=== PATIENT | male | born 1955 | race African-American/Black ===

== ENCOUNTER 2021-09-29 22:05 | Inpatient (IN) | payer BC, OTHER ==
[~2021-09-29] VITALS: Ht 170.2 cm; Wt 96.2 kg
[2021-09-29] MEDS ORDERED: ASPIRIN 81MG TABLET PO ONE (22:45)
[2021-09-29] MEDS ORDERED: SODIUM CHLORIDE 0.9% 1,000 ML IV ONE (22:45)
[2021-09-29 23:02] LABS: HEMOGLOBIN. 9.1 g/dL (14.0-18.0); MEAN CORPUSCULAR HEMOGLOBIN 25.6 pg (28.0-32.0); MEAN CORPUSCULAR VOLUME 81.8 fL (80.0-94.0); MEAN PLATELET VOLUME 7.7 fl (7.4-10.4); PLATELET 369 x1000/uL (130-400); RED BLOOD CELL COUNT 3.54 mill/uL (4.7-6.1)
[2021-09-29 23:10] LABS: CHLORIDE 102 mEq/L (98-107)
[2021-09-29 23:27] LABS: PLATELET ESTIMATE NORMAL
[2021-09-29] MEDS ORDERED: SODIUM CHLORIDE 0.9% 1000ML BAG (SEPSIS BOLUS) IV ONE (23:45)
[2021-09-29] MEDS ORDERED: HEPARIN 5000 UNITS/ML VIAL IV SCH (23:45)
[2021-09-29] MEDS ORDERED: HEPARIN 25,000 UNITS PREMIX 250 ML IV PRN (23:45)
[2021-09-30] VITALS (11 sets, daily range): BP systolic 116–200; BP diastolic 61–105
[2021-09-30] MEDS ORDERED: PIPERACILLIN/TAZOBACTAM 3.375GM/50ML PREMIX IV SCH
[2021-09-30] MEDS ORDERED: VANCOMYCIN 1GM PMX (XELLIA) 200 ML IV SCH
[2021-09-30] MEDS ORDERED: HEPARIN BOLUS PRN aPTT <36 IV ×2 (00:15→10:15)
[2021-09-30] MEDS ORDERED: HEPARIN 80 UNITS/KG BOLUS IV SCH (00:15)
[2021-09-30] MEDS ORDERED: HEPARIN BOLUS PRN aPTT 37-44 IV ×2 (00:15→10:15)
[2021-09-30] MEDS ORDERED: HEPARIN 25,000 UNITS in DEXT 5% WATER 245 ML IV PRN (00:30)
[2021-09-30] MEDS ORDERED: HEPARIN 25,000 UNITS PREMIX 250 ML IV SCH (00:30)
[2021-09-30] MEDS ORDERED: HEPARIN 25,000 UNITS in DEXT 5% WATER 250 ML IV PRN (00:30)
[2021-09-30] MEDS ORDERED: ACETAMINOPHEN 325MG TABLET PO PRN (02:00)
[2021-09-30] MEDS ORDERED: CLONIDINE 0.1MG TABLET PO PRN (02:00)
[2021-09-30] MEDS ORDERED: ONDANSETRON HCL 4MG/2ML INJ IV PRN (02:00)
[2021-09-30] MEDS ORDERED: GUAIFENESIN 200MG/10ML SUGAR FREE UDC PO PRN (02:00)
[2021-09-30] MEDS ORDERED: DOCUSATE SODIUM 100MG CAPSULE PO PRN (02:00)
[2021-09-30] MEDS ORDERED: IPRATROPIUM/ALBUTEROL 0.5-3(2.5)MG/3ML NEB HHN PRN (02:00)
[2021-09-30 02:26] LABS: CLARITY URINE TURBID (CLEAR); COLOR URINE YELLOW (YELLOW); KETONES URINE NEGATIVE (NEGATIVE); LEUKOCYTE ESTERASE URINE 3+ (NEGATIVE); NITRITE URINE NEGATIVE (NEGATIVE); OCCULT BLOOD URINE 1+ (NEGATIVE); PH URINE 7.5 (4.5-8.0); PROTEIN URINE 3+ (NEGATIVE); SPECIFIC GRAVITY URINE 1.013 (1.005-1.030); UROBILINOGEN URINE 0.2 E.U./dL (0.2-1.0)
[2021-09-30] MEDS: PIPERACILLIN/TAZOBACTAM 3.375GM/50ML PREMIX IV SCH ×2 (07:42→15:45)
[2021-09-30 07:59] LABS: BASOPHILS % 0.6 % (0.0-2.0); EOSINOPHILS % 0.9 % (0.0-5.0); HEMATOCRIT. 28.2 % (42.0-52.0); HEMOGLOBIN. 8.5 g/dL (14.0-18.0); LYMPHOCYTES % 11.6 % (20.0-50.0); MEAN CORPUSCULAR VOLUME 86.4 fL (80.0-94.0); MEAN PLATELET VOLUME 7.9 fl (7.4-10.4); MONOCYTES % 8.5 % (2.0-8.0); NEUTROPHILS % 78.4 % (40.0-76.0); PLATELET 352 x1000/uL (130-400); RED BLOOD CELL COUNT 3.26 mill/uL (4.7-6.1); RED CELL DISTRIBUTION WIDTH 18.6 % (11.6-14.6)
[2021-09-30] MEDS ORDERED: HYDROCODONE/ACETAMINOPHEN 5/325MG TABLET PO PRN (10:15)
[2021-09-30] MEDS ORDERED: FUROSEMIDE 40MG/4ML VIAL IVP NR (13:15)
[2021-09-30] MEDS: AMLODIPINE 5MG TABLET PO SCH ×2 (13:48→18:46)
[2021-09-30 14:20] LABS: BG BASE EXCESS -4.2 mmol/L (-2.0-2.0); BG CARBOXYHEMOGLOBIN 0.6 % (0.5-1.5); BG DEOXYHEMOGLOBIN 1.5 % (0.0-5.0); BG FRACTION INSPIRED OXYGEN 40; BG HCO3 ACT 17.9 mmol/L (22.0-26.0); BG METHEMOGLOBIN 0.4 % (0.0-1.5); BG OXYGEN SATURATION 98.5 % (92.0-98.5); BG OXYHEMOGLOBIN 97.5 % (94.0-97.0); BG PCO2 23.8 mmHg (35.0-45.0); BG PH 7.495 (7.350-7.450); BG PO2 139.9 mmHg (75.0-100.0); BG SAMPLE SITE RIGHT RADIAL; BG TOTAL HEMOGLOBIN 9.4 g/dL (12.0-18.0); BG VENT MODE NASAL CANNULA
[2021-09-30] MEDS ORDERED: HYDRALAZINE 20MG/ML VIAL IV PRN (16:30)
[2021-09-30] MEDS ORDERED: *PATIENT'S OWN MEDICATION STORAGE XX SCH (17:00)
[2021-09-30] MEDS ORDERED: IOHEXOL-350 100 ML BOTTLE ONE (20:06)
[2021-09-30] MEDS ORDERED: HYDRALAZINE HCL 10MG TABLET PO SCH (22:00)
[2021-09-30] MEDS ORDERED: HYDRALAZINE HCL 25MG TABLET PO SCH (22:00)
[2021-09-30] MEDS: HYDRALAZINE HCL 10MG TABLET PO SCH (22:03)
[2021-09-30] MEDS: PIPERACILLIN/TAZOBACTAM 3.375G in DEXT 5% WATER 50ML IV SCH (22:04)
[2021-10-01] VITALS (12 sets, daily range): BP systolic 78–128; BP diastolic 40–72
[2021-10-01] MEDS ORDERED: VANCOMYCIN 1GM PMX (XELLIA) 200 ML IV SCH (01:00)
[2021-10-01] MEDS: HYDRALAZINE HCL 10MG TABLET PO SCH (06:00)
[2021-10-01] MEDS: PIPERACILLIN/TAZOBACTAM 3.375G in DEXT 5% WATER 50ML IV SCH ×2 (06:36→13:51)
[2021-10-01 07:59] LABS: HEMATOCRIT. 23.4 % (42.0-52.0); HEMOGLOBIN. 7.3 g/dL (14.0-18.0); MEAN CORPUSCULAR VOLUME 83.8 fL (80.0-94.0); MEAN PLATELET VOLUME 8.5 fl (7.4-10.4); PLATELET 405 x1000/uL (130-400); RED CELL DISTRIBUTION WIDTH 18.5 % (11.6-14.6)
[2021-10-01] MEDS: AMLODIPINE 5MG TABLET PO SCH (09:00)
[2021-10-01] MEDS ORDERED: HYDROCODONE/ACETAMINOPHEN 5/325MG TABLET PO PRN (11:15)
[2021-10-01 11:49] LABS: PLATELET ESTIMATE SLIGHTLY INCREASED
[2021-10-01] MEDS ORDERED: LACTULOSE 20G/30ML UDC PO PRN (16:30)
[2021-10-01] MEDS ORDERED: DOCUSATE SODIUM SUGAR FREE 100MG/10ML UDC NG SCH (16:30)
[2021-10-01] MEDS ORDERED: PANTOPRAZOLE SODIUM 40 MG/VIAL IV SCH (17:00)
[2021-10-01] MEDS: SODIUM CHLORIDE 0.45% 1,000 ML IV SCH (18:13)
[2021-10-01] MEDS: CEFEPIME 1,000 MG in DEXTROSE 5% WATER 50 ML IV SCH (18:13)
[2021-10-02] VITALS (13 sets, daily range): BP systolic 94–154; BP diastolic 42–93
[2021-10-02 07:12] LABS: HEMATOCRIT. 22.6 % (42.0-52.0); HEMOGLOBIN. 7.1 g/dL (14.0-18.0); MEAN CORPUSCULAR HEMOGLOBIN 26.1 pg (28.0-32.0); MEAN CORPUSCULAR VOLUME 83.4 fL (80.0-94.0); MEAN PLATELET VOLUME 8.5 fl (7.4-10.4); PLATELET 474 x1000/uL (130-400); RED BLOOD CELL COUNT 2.71 mill/uL (4.7-6.1); RED CELL DISTRIBUTION WIDTH 18.4 % (11.6-14.6)
[2021-10-02] MEDS ORDERED: LACTULOSE 20G/30ML UDC PO PRN (08:45)
[2021-10-02] MEDS ORDERED: IPRATROPIUM/ALBUTEROL 0.5-3(2.5)MG/3ML NEB HHN PRN (08:45)
[2021-10-02] MEDS ORDERED: CLONIDINE 0.1MG TABLET PO PRN (08:45)
[2021-10-02] MEDS ORDERED: ACETAMINOPHEN 325MG TABLET PO PRN (08:45)
[2021-10-02] MEDS ORDERED: DOCUSATE SODIUM 100MG CAPSULE PO PRN (08:45)
[2021-10-02] MEDS ORDERED: GUAIFENESIN 200MG/10ML SUGAR FREE UDC PO PRN (08:45)
[2021-10-02] MEDS ORDERED: ONDANSETRON HCL 4MG/2ML INJ IV PRN (08:45)
[2021-10-02] MEDS ORDERED: HYDRALAZINE 20MG/ML VIAL IV PRN (08:45)
[2021-10-02] MEDS ORDERED: DOCUSATE SODIUM SUGAR FREE 100MG/10ML UDC NG SCH (09:00)
[2021-10-02] MEDS ORDERED: AMLODIPINE 2.5MG TABLET PO SCH (09:00)
[2021-10-02] MEDS: AMLODIPINE 2.5MG TABLET PO SCH (09:00)
[2021-10-02] MEDS: SODIUM CHLORIDE 0.45% 1,000 ML IV SCH ×3 (10:55→15:32)
[2021-10-02] MEDS: PANTOPRAZOLE SODIUM 40 MG/VIAL IV SCH ×2 (11:41→21:53)
[2021-10-02] MEDS ORDERED: VANCOMYCIN 1GM PMX (XELLIA) 200 ML IV SCH (16:00)
[2021-10-02] MEDS: CEFEPIME 1,000 MG in DEXTROSE 5% WATER 50 ML IV SCH (17:06)
[2021-10-02 17:44] LABS: PLATELET ESTIMATE INCREASED
[2021-10-03] VITALS (14 sets, daily range): BP systolic 98–121; BP diastolic 46–62
[2021-10-03] MEDS: SODIUM CHLORIDE 0.45% 1,000 ML IV SCH ×3 (01:31→17:29)
[2021-10-03 07:11] LABS: HEMATOCRIT. 23.9 % (42.0-52.0); HEMOGLOBIN. 7.4 g/dL (14.0-18.0); MEAN CORPUSCULAR HEMOGLOBIN 26.1 pg (28.0-32.0); MEAN CORPUSCULAR VOLUME 84.2 fL (80.0-94.0); MEAN PLATELET VOLUME 7.9 fl (7.4-10.4); PLATELET 491 x1000/uL (130-400); RED BLOOD CELL COUNT 2.84 mill/uL (4.7-6.1); RED CELL DISTRIBUTION WIDTH 18.7 % (11.6-14.6)
[2021-10-03] MEDS: AMLODIPINE 2.5MG TABLET PO SCH (09:00)
[2021-10-03] MEDS: PANTOPRAZOLE SODIUM 40 MG/VIAL IV SCH ×2 (09:35→21:24)
[2021-10-03] MEDS ORDERED: IOHEXOL-300 100 ML BOTTLE ONE (10:19)
[2021-10-03 11:06] LABS: PLATELET ESTIMATE INCREASED
[2021-10-03] MEDS: CITRIC ACID/SODIUM CITRATE SOLN 30ML UDC PO SCH ×2 (12:41→17:27)
[2021-10-03] MEDS ORDERED: POTASSIUM CHLORIDE 20MEQ/PACKET PO NR (13:00)
[2021-10-03] MEDS: CEFEPIME 1,000 MG in DEXTROSE 5% WATER 50 ML IV SCH (17:27)
[2021-10-04] VITALS (12 sets, daily range): BP systolic 89–148; BP diastolic 42–73
[2021-10-04 06:38] LABS: HEMATOCRIT. 28.2 % (42.0-52.0); HEMOGLOBIN. 8.6 g/dL (14.0-18.0); MEAN CORPUSCULAR HEMOGLOBIN 25.6 pg (28.0-32.0); MEAN CORPUSCULAR VOLUME 83.8 fL (80.0-94.0); MEAN PLATELET VOLUME 8.1 fl (7.4-10.4); PLATELET 517 x1000/uL (130-400); RED BLOOD CELL COUNT 3.37 mill/uL (4.7-6.1); RED CELL DISTRIBUTION WIDTH 18.9 % (11.6-14.6)
[2021-10-04 06:48] LABS: PHOSPHORUS 5.6 mg/dL (2.5-4.9)
[2021-10-04] MEDS: SODIUM CHLORIDE 0.45% 1,000 ML IV SCH ×2 (07:43→23:31)
[2021-10-04 08:36] LABS: PLATELET ESTIMATE INCREASED
[2021-10-04] MEDS: AMLODIPINE 2.5MG TABLET PO SCH (09:11)
[2021-10-04] MEDS: PANTOPRAZOLE SODIUM 40 MG/VIAL IV SCH ×2 (09:11→21:45)
[2021-10-04] MEDS: CITRIC ACID/SODIUM CITRATE SOLN 30ML UDC PO SCH ×3 (09:11→17:13)
[2021-10-04] MEDS ORDERED: POTASSIUM CHLORIDE 20MEQ TABLET SR PO SCH (11:15)
[2021-10-04] MEDS ORDERED: VANCOMYCIN 500MG PREMIX 100 ML IV SCH (12:00)
[2021-10-04] MEDS: CEFEPIME 1,000 MG in DEXTROSE 5% WATER 50 ML IV SCH (17:13)
[2021-10-05] VITALS (16 sets, daily range): BP systolic 83–144; BP diastolic 41–78
[2021-10-05] MEDS: SODIUM CHLORIDE 0.45% 1,000 ML IV SCH ×2 (05:32→17:24)
[2021-10-05 06:08] LABS: HEMATOCRIT. 23.1 % (42.0-52.0); MEAN CORPUSCULAR HEMOGLOBIN 25.6 pg (28.0-32.0); MEAN CORPUSCULAR VOLUME 84.1 fL (80.0-94.0); PLATELET 368 x1000/uL (130-400); RED BLOOD CELL COUNT 2.75 mill/uL (4.7-6.1); RED CELL DISTRIBUTION WIDTH 18.4 % (11.6-14.6)
[2021-10-05] MEDS: AMLODIPINE 2.5MG TABLET PO SCH (09:00)
[2021-10-05] MEDS: PANTOPRAZOLE SODIUM 40 MG/VIAL IV SCH ×2 (09:34→21:18)
[2021-10-05] MEDS: CITRIC ACID/SODIUM CITRATE SOLN 30ML UDC PO SCH ×3 (09:36→17:42)
[2021-10-05] MEDS ORDERED: POTASSIUM CHLORIDE 20MEQ TABLET SR PO NR (12:30)
[2021-10-05] MEDS ORDERED: HYDROCODONE/ACETAMINOPHEN 5/325MG TABLET PO PRN (15:15)
[2021-10-05 15:23] LABS: NUCLEATED RED BLOOD CELLS 2 /100 WBC; PLATELET ESTIMATE NORMAL
[2021-10-05] MEDS: HYDROCODONE/ACETAMINOPHEN 5/325MG TABLET PO PRN ×2 (17:20→21:23)
[2021-10-05] MEDS: CEFEPIME 1,000 MG in DEXTROSE 5% WATER 50 ML IV SCH (17:21)
[2021-10-05 21:21] LABS: HEMATOCRIT 29.6 % (42.0-52.0); HEMOGLOBIN 9.4 g/dL (14.0-18.0)
[2021-10-06] VITALS (13 sets, daily range): BP systolic 83–119; BP diastolic 39–62
[2021-10-06] MEDS: HYDROCODONE/ACETAMINOPHEN 5/325MG TABLET PO PRN ×2 (01:30→06:14)
[2021-10-06] MEDS: SODIUM CHLORIDE 0.45% 1,000 ML IV SCH ×2 (05:40→18:25)
[2021-10-06 06:02] LABS: HEMATOCRIT. 31.1 % (42.0-52.0); HEMOGLOBIN. 9.7 g/dL (14.0-18.0); MEAN CORPUSCULAR HEMOGLOBIN 26.5 pg (28.0-32.0); MEAN CORPUSCULAR VOLUME 85.3 fL (80.0-94.0); MEAN PLATELET VOLUME 8.3 fl (7.4-10.4); PLATELET 316 x1000/uL (130-400); RED BLOOD CELL COUNT 3.64 mill/uL (4.7-6.1); RED CELL DISTRIBUTION WIDTH 17.9 % (11.6-14.6)
[2021-10-06] MEDS: PANTOPRAZOLE SODIUM 40 MG/VIAL IV SCH ×2 (08:36→21:02)
[2021-10-06] MEDS: CITRIC ACID/SODIUM CITRATE SOLN 30ML UDC PO SCH ×3 (08:36→17:34)
[2021-10-06] MEDS: AMLODIPINE 2.5MG TABLET PO SCH (08:37)
[2021-10-06 16:01] LABS: PLATELET ESTIMATE NORMAL
[2021-10-06] MEDS: CEFEPIME 1,000 MG in DEXTROSE 5% WATER 50 ML IV SCH (17:34)
[2021-10-06] MEDS ORDERED: NALOXONE HCL 0.4MG/ML VIAL IV PRN (17:45)
[2021-10-06] MEDS: MORPHINE SULFATE 2 MG/ML CPJ (NOT FOR IM USE) IV PRN (21:03)
[2021-10-07] VITALS (11 sets, daily range): BP systolic 77–104; BP diastolic 39–61
[2021-10-07 05:46] LABS: HEMATOCRIT. 28.6 % (42.0-52.0); HEMOGLOBIN. 8.8 g/dL (14.0-18.0); MEAN CORPUSCULAR HEMOGLOBIN 26.7 pg (28.0-32.0); MEAN CORPUSCULAR VOLUME 87.1 fL (80.0-94.0); MEAN PLATELET VOLUME 8.3 fl (7.4-10.4); PLATELET 256 x1000/uL (130-400); RED BLOOD CELL COUNT 3.29 mill/uL (4.7-6.1); RED CELL DISTRIBUTION WIDTH 18.7 % (11.6-14.6)
[2021-10-07] MEDS: SODIUM CHLORIDE 0.45% 1,000 ML IV SCH (07:42)
[2021-10-07] MEDS: PANTOPRAZOLE SODIUM 40 MG/VIAL IV SCH ×2 (08:20→22:11)
[2021-10-07] MEDS: CITRIC ACID/SODIUM CITRATE SOLN 30ML UDC PO SCH ×3 (08:20→16:14)
[2021-10-07 08:56] LABS: CREATINE KINASE 304 IU/L (39-308)
[2021-10-07] MEDS: HYDROCODONE/ACETAMINOPHEN 5/325MG TABLET PO PRN ×2 (09:02→16:15)
[2021-10-07] MEDS: MIDODRINE HCL 5MG TABLET PO SCH ×3 (10:22→16:16)
[2021-10-07] MEDS: CEFEPIME 1,000 MG in DEXTROSE 5% WATER 50 ML IV SCH (17:53)
[2021-10-07 19:34] LABS: PLATELET ESTIMATE NORMAL
[2021-10-08] VITALS (87 sets, daily range): BP systolic 50–161; BP diastolic 23–131
[2021-10-08] MEDS: SODIUM CHLORIDE 0.45% 1,000 ML IV SCH (00:29)
[2021-10-08 01:34] LABS: BG BASE EXCESS -6.4 mmol/L (-2.0-2.0); BG CARBOXYHEMOGLOBIN 0.3 % (0.5-1.5); BG FRACTION INSPIRED OXYGEN 100; BG HCO3 ACT 19.3 mmol/L (22.0-26.0); BG METHEMOGLOBIN 0.8 % (0.0-1.5); BG OXYGEN SATURATION 30.2 % (92.0-98.5); BG OXYHEMOGLOBIN 29.9 % (94.0-97.0); BG PCO2 39.3 mmHg (35.0-45.0); BG PO2 < 30.3 mmHg (75.0-100.0); BG SAMPLE SITE RIGHT RADIAL; BG TOTAL HEMOGLOBIN 8.8 g/dL (12.0-18.0); BG VENT MODE MASK - NRB
[2021-10-08] MEDS: NOREPINEPHRINE 32 MG in DEXT 5% WATER 218 ML IV PRN (01:40)
[2021-10-08] MEDS ORDERED: MORPHINE SULFATE 2 MG/ML CPJ (NOT FOR IM USE) IV PRN (02:00)
[2021-10-08] MEDS ORDERED: VASOPRESSIN 20 UNIT in SODIUM CHLORIDE 0.9% 99 ML IV PRN (03:30)
[2021-10-08] MEDS ORDERED: HYDROCORTISONE SOD SUCCINATE 100 MG/2 ML VIAL IV NR (03:30)
[2021-10-08 05:49] LABS: HEMATOCRIT. 32.2 % (42.0-52.0); HEMOGLOBIN. 9.8 g/dL (14.0-18.0); MEAN CORPUSCULAR HEMOGLOBIN 25.8 pg (28.0-32.0); MEAN CORPUSCULAR VOLUME 84.4 fL (80.0-94.0); PLATELET 310 x1000/uL (130-400); RED BLOOD CELL COUNT 3.81 mill/uL (4.7-6.1)
[2021-10-08] MEDS: PANTOPRAZOLE SODIUM 40 MG/VIAL IV SCH ×2 (08:49→21:13)
[2021-10-08] MEDS: CITRIC ACID/SODIUM CITRATE SOLN 30ML UDC PO SCH ×3 (09:00→17:30)
[2021-10-08] MEDS: AMLODIPINE 2.5MG TABLET PO SCH (09:00)
[2021-10-08] MEDS: MIDODRINE HCL 5MG TABLET PO SCH ×3 (09:00→17:30)
[2021-10-08 09:35] LABS: BG BASE EXCESS -7.9 mmol/L (-2.0-2.0); BG CARBOXYHEMOGLOBIN 0.3 % (0.5-1.5); BG DEOXYHEMOGLOBIN 1.2 % (0.0-5.0); BG FRACTION INSPIRED OXYGEN 100; BG HCO3 ACT 17.4 mmol/L (22.0-26.0); BG METHEMOGLOBIN 0.3 % (0.0-1.5); BG OXYGEN SATURATION 98.8 % (92.0-98.5); BG OXYHEMOGLOBIN 98.2 % (94.0-97.0); BG PCO2 34.5 mmHg (35.0-45.0); BG PO2 142.5 mmHg (75.0-100.0); BG SAMPLE SITE RIGHT RADIAL; BG TOTAL HEMOGLOBIN 9.8 g/dL (12.0-18.0); BG VENT MODE MASK - NRB
[2021-10-08] MEDS: MEROPENEM 1,000 MG in SODIUM CHLORIDE 0.9% 100 ML IV SCH ×2 (10:29→21:13)
[2021-10-08] MEDS: SODIUM BICARBONATE 100 MEQ in DEXTROSE 5% WATER 1,000 ML IV SCH (10:36)
[2021-10-08 11:04] LABS: PLATELET ESTIMATE NORMAL
[2021-10-08] MEDS: MORPHINE SULFATE 2 MG/ML CPJ (NOT FOR IM USE) IV PRN (16:03)
[2021-10-09] VITALS (97 sets, daily range): BP systolic 78–133; BP diastolic 40–91
[2021-10-09] MEDS: NOREPINEPHRINE 32 MG in DEXT 5% WATER 218 ML IV PRN (01:54)
[2021-10-09 04:56] LABS: HEMATOCRIT. 27.6 % (42.0-52.0); HEMOGLOBIN. 8.8 g/dL (14.0-18.0); MEAN CORPUSCULAR HEMOGLOBIN 26.2 pg (28.0-32.0); MEAN CORPUSCULAR VOLUME 82.4 fL (80.0-94.0); MEAN PLATELET VOLUME 8.1 fl (7.4-10.4); PLATELET 287 x1000/uL (130-400); RED BLOOD CELL COUNT 3.35 mill/uL (4.7-6.1)
[2021-10-09] MEDS: SODIUM BICARBONATE 100 MEQ in DEXTROSE 5% WATER 1,000 ML IV SCH (05:32)
[2021-10-09 06:54] LABS: PLATELET ESTIMATE NORMAL
[2021-10-09] MEDS: CITRIC ACID/SODIUM CITRATE SOLN 30ML UDC PO SCH ×3 (08:47→16:55)
[2021-10-09] MEDS: MEROPENEM 1,000 MG in SODIUM CHLORIDE 0.9% 100 ML IV SCH ×2 (08:47→20:28)
[2021-10-09] MEDS: PANTOPRAZOLE SODIUM 40 MG/VIAL IV SCH ×2 (08:47→20:28)
[2021-10-09] MEDS: MIDODRINE HCL 5MG TABLET PO SCH ×3 (08:47→16:55)
[2021-10-09] MEDS: AMLODIPINE 2.5MG TABLET PO SCH (08:48)
[2021-10-09] MEDS ORDERED: GLYCOPYRROLATE 0.2 MG/ML 2ML VIAL IV NR (16:00)
[2021-10-09] MEDS: CALCITONIN,SALMON, 3.7 ML NASAL SPRAY ONENSTRL SCH (16:25)
[2021-10-09] MEDS: MORPHINE SULFATE 2 MG/ML CPJ (NOT FOR IM USE) IV PRN (17:53)
[2021-10-10] VITALS (96 sets, daily range): BP systolic 83–134; BP diastolic 45–64
[2021-10-10] MEDS: SODIUM BICARBONATE 100 MEQ in DEXTROSE 5% WATER 1,000 ML IV SCH (00:19)
[2021-10-10] MEDS: AMLODIPINE 2.5MG TABLET PO SCH (09:00)
[2021-10-10] MEDS: PANTOPRAZOLE SODIUM 40 MG/VIAL IV SCH ×2 (09:40→21:16)
[2021-10-10] MEDS: CITRIC ACID/SODIUM CITRATE SOLN 30ML UDC PO SCH ×3 (09:40→19:32)
[2021-10-10] MEDS: MEROPENEM 1,000 MG in SODIUM CHLORIDE 0.9% 100 ML IV SCH ×2 (09:40→21:16)
[2021-10-10] MEDS: MIDODRINE HCL 5MG TABLET PO SCH ×3 (09:41→19:32)
[2021-10-10] MEDS: NOREPINEPHRINE 32 MG in DEXT 5% WATER 218 ML IV PRN (09:42)
[2021-10-10] MEDS: IPRATROPIUM/ALBUTEROL 0.5-3(2.5)MG/3ML NEB HHN SCH ×2 (15:24→21:02)
[2021-10-10] MEDS ORDERED: VANCOMYCIN 750 MG IV NR (20:00)
[2021-10-11] VITALS (98 sets, daily range): BP systolic 85–130; BP diastolic 42–68
[2021-10-11] MEDS: IPRATROPIUM/ALBUTEROL 0.5-3(2.5)MG/3ML NEB HHN SCH ×4 (02:55→21:24)
[2021-10-11] MEDS: AMLODIPINE 2.5MG TABLET PO SCH (09:00)
[2021-10-11] MEDS: PANTOPRAZOLE SODIUM 40 MG/VIAL IV SCH ×2 (09:13→21:05)
[2021-10-11] MEDS: CITRIC ACID/SODIUM CITRATE SOLN 30ML UDC PO SCH ×3 (09:13→19:13)
[2021-10-11] MEDS: MEROPENEM 1,000 MG in SODIUM CHLORIDE 0.9% 100 ML IV SCH ×2 (09:13→21:05)
[2021-10-11] MEDS: MIDODRINE HCL 5MG TABLET PO SCH ×3 (09:14→19:14)
[2021-10-11] MEDS: CALCITONIN,SALMON, 3.7 ML NASAL SPRAY ONENSTRL SCH ×2 (12:19→12:20)
[2021-10-11] MEDS: NOREPINEPHRINE 32 MG in DEXT 5% WATER 218 ML IV PRN (23:26)
[2021-10-12] VITALS (94 sets, daily range): BP systolic 78–136; BP diastolic 35–65
[2021-10-12] MEDS: IPRATROPIUM/ALBUTEROL 0.5-3(2.5)MG/3ML NEB HHN SCH ×4 (02:46→20:49)
[2021-10-12] MEDS: MEROPENEM 1,000 MG in SODIUM CHLORIDE 0.9% 100 ML IV SCH ×2 (08:28→21:08)
[2021-10-12] MEDS: CITRIC ACID/SODIUM CITRATE SOLN 30ML UDC PO SCH ×3 (08:28→18:49)
[2021-10-12] MEDS: AMLODIPINE 2.5MG TABLET PO SCH (08:29)
[2021-10-12] MEDS: MIDODRINE HCL 5MG TABLET PO SCH ×3 (08:29→18:49)
[2021-10-12] MEDS: PANTOPRAZOLE SODIUM 40 MG/VIAL IV SCH ×2 (08:30→21:09)
[2021-10-12] MEDS: CALCITONIN,SALMON, 3.7 ML NASAL SPRAY ONENSTRL SCH (08:30)
[2021-10-12] MEDS ORDERED: VANCOMYCIN 750MG PMX (XELLIA) 150 ML IV NR (12:00)
[2021-10-12 12:58] LABS: BG BASE EXCESS 1.5 mmol/L (-2.0-2.0); BG CARBOXYHEMOGLOBIN 1.5 % (0.5-1.5); BG DEOXYHEMOGLOBIN 0.6 % (0.0-5.0); BG FRACTION INSPIRED OXYGEN 100; BG HCO3 ACT 25.1 mmol/L (22.0-26.0); BG METHEMOGLOBIN 0.8 % (0.0-1.5); BG OXYGEN SATURATION 99.4 % (92.0-98.5); BG OXYHEMOGLOBIN 97.1 % (94.0-97.0); BG PCO2 34.8 mmHg (35.0-45.0); BG PH 7.476 (7.350-7.450); BG PO2 161.6 mmHg (75.0-100.0); BG SAMPLE SITE RIGHT RADIAL; BG TOTAL HEMOGLOBIN 7.5 g/dL (12.0-18.0); BG VENT MODE HIGH FLOW
[2021-10-13] VITALS (67 sets, daily range): BP systolic 32–125; BP diastolic 16–60
[2021-10-13] MEDS: IPRATROPIUM/ALBUTEROL 0.5-3(2.5)MG/3ML NEB HHN SCH ×2 (02:23→08:43)
[2021-10-13 05:55] LABS: HEMATOCRIT. 21.9 % (42.0-52.0); MEAN CORPUSCULAR HEMOGLOBIN 26.2 pg (28.0-32.0); MEAN CORPUSCULAR VOLUME 86.6 fL (80.0-94.0); RED BLOOD CELL COUNT 2.53 mill/uL (4.7-6.1); RED CELL DISTRIBUTION WIDTH 19.9 % (11.6-14.6)
[2021-10-13 06:54] LABS: HEMOGLOBIN. 6.6 g/dL (14.0-18.0)
[2021-10-13 08:14] LABS: PLATELET ESTIMATE NORMAL
[2021-10-13 08:18] LABS: PLATELET 270 x1000/uL (130-400)
[2021-10-13 08:19] LABS: MEAN PLATELET VOLUME 9.1 fl (7.4-10.4)
[2021-10-13] MEDS: AMLODIPINE 2.5MG TABLET PO SCH (08:24)
[2021-10-13] MEDS: MEROPENEM 1,000 MG in SODIUM CHLORIDE 0.9% 100 ML IV SCH (08:24)
[2021-10-13] MEDS: MIDODRINE HCL 5MG TABLET PO SCH (08:24)
[2021-10-13] MEDS: CITRIC ACID/SODIUM CITRATE SOLN 30ML UDC PO SCH (08:25)
[2021-10-13] MEDS: PANTOPRAZOLE SODIUM 40 MG/VIAL IV SCH (08:29)
[2021-10-13] MEDS: CALCITONIN,SALMON, 3.7 ML NASAL SPRAY ONENSTRL SCH (08:29)
[2021-10-13] MEDS ORDERED: MORPHINE SULFATE 2 MG/ML CPJ (NOT FOR IM USE) IV PRN ×2 (08:45→11:45)
[2021-10-13] MEDS: NOREPINEPHRINE 32 MG in DEXT 5% WATER 218 ML IV PRN (08:48)
[2021-10-13 10:24] LABS: BG BASE EXCESS 0.4 mmol/L (-2.0-2.0); BG CARBOXYHEMOGLOBIN 1.4 % (0.5-1.5); BG DEOXYHEMOGLOBIN 7.7 % (0.0-5.0); BG FRACTION INSPIRED OXYGEN 50; BG HCO3 ACT 23.7 mmol/L (22.0-26.0); BG METHEMOGLOBIN 0.7 % (0.0-1.5); BG OXYGEN SATURATION 92.1 % (92.0-98.5); BG OXYHEMOGLOBIN 90.2 % (94.0-97.0); BG PCO2 32.3 mmHg (35.0-45.0); BG PH 7.484 (7.350-7.450); BG PO2 68.9 mmHg (75.0-100.0); BG SAMPLE SITE LEFT BRACHIAL; BG TOTAL HEMOGLOBIN 7.5 g/dL (12.0-18.0); BG VENT MODE HIGH FLOW
[2021-10-13] MEDS ORDERED: SODIUM CHLORIDE 0.9% 500 ML IV ONE (11:00)
[2021-10-13] MEDS: LORAZEPAM 2MG/ML CPJ IV PRN ×2 (12:34→15:54)
[2021-10-13] MEDS ORDERED: MORPHINE SULFATE 2 MG/ML CPJ (NOT FOR IM USE) IV SCH (15:15)
== END 2021-10-13 18:20 | DRG 871 ==
LOC: ER 22:05 → MICUSO 09-30 01:04 → 5EST 09-30 10:47 → 7WST 10-07 17:11 → MICUSO 10-08 03:00
PROVIDERS: ADMIT Family Medicine Adult Medicine; ATTEND Family Medicine Adult Medicine
PROC: 06H03DZ Insertion of Intraluminal Device into Inferior Vena Cava, Percutaneous Approach (ICD-10-PCS; principal; 2021-10-03)
PROC: B5191ZZ Fluoroscopy of Inferior Vena Cava using Low Osmolar Contrast (ICD-10-PCS; 2021-10-03)
PROC: 30233N1 Transfusion of Nonautologous Red Blood Cells into Peripheral Vein, Percutaneous Approach (ICD-10-PCS; 2021-10-05)
PROC: 5A0955A Assistance with Respiratory Ventilation, Greater than 96 Consecutive Hours, High Flow/Velocity Cannula (ICD-10-PCS; 2021-10-08)
DX: A41.50 Gram-negative sepsis, unspecified (principal); L89.153 Pressure ulcer of sacral region, stage 3; G92.8 Other toxic encephalopathy; J96.01 Acute respiratory failure with hypoxia; J18.9 Pneumonia, unspecified organism; E43 Unspecified severe protein-calorie malnutrition; N17.0 Acute kidney failure with tubular necrosis; R65.21 Severe sepsis with septic shock; N39.0 Urinary tract infection, site not specified; E87.4 Mixed disorder of acid-base balance; K56.7 Ileus, unspecified; C79.51 Secondary malignant neoplasm of bone; D84.821 Immunodeficiency due to drugs; I82.432 Acute embolism and thrombosis of left popliteal vein; I82.422 Acute embolism and thrombosis of left iliac vein; I82.413 Acute embolism and thrombosis of femoral vein, bilateral; D68.59 Other primary thrombophilia; Z66 Do not resuscitate; C61 Malignant neoplasm of prostate; D50.9 Iron deficiency anemia, unspecified; G90.9 Disorder of the autonomic nervous system, unspecified; K52.9 Noninfective gastroenteritis and colitis, unspecified; N18.9 Chronic kidney disease, unspecified; I13.10 Hypertensive heart and chronic kidney disease without heart failure, with stage 1 through stage 4 chronic kidney disease, or unspecified chronic kidney disease; R73.9 Hyperglycemia, unspecified; R74.01 Elevation of levels of liver transaminase levels; G89.29 Other chronic pain; T50.995A Adverse effect of other drugs, medicaments and biological substances, initial encounter; F32.A Depression, unspecified; R13.10 Dysphagia, unspecified; Z91.51 Personal history of suicidal behavior; Z93.6 Other artificial openings of urinary tract status; Y92.89 Other specified places as the place of occurrence of the external cause; Z51.5 Encounter for palliative care; Z74.01 Bed confinement status; Z79.899 Other long term (current) drug therapy; Z95.828 Presence of other vascular implants and grafts; Z68.33 Body mass index [BMI] 33.0-33.9, adult
CPT/HCPCS: 36415; 36600; 37191; 71045; 71275; 74018; 74176; 76770; 78582; 80048; 80053; 80202; 81003; 82040; 82270; 82375; 82550; 82805; 83540; 83550; 83605; 83735; 83880; 84100; 84134; 84145; 84153; 84484; 84550; 85014; 85018; 85025; 86850; 86900; 86920; 87077; 87186; 93005; 93306; 93970; 94640; 97162; 99291; A6261; A9558; C1769; C1880; C1893; C9113; J0692; J1644; J1720; J1940; J2060; J2185; J2270; J2543; J3370; J3490; J7030; J7050; J7060; J7070; P9016; Q9967; G0103